=== PATIENT | male | born 1980 | race African-American/Black ===

== ENCOUNTER 2019-10-04 07:03 | Emergency (ER) | payer MEDICAID, OTHER ==
[~2019-10-04] VITALS: Ht 177.8 cm; Wt 117.2 kg
[2019-10-04] MEDS ORDERED: METH4TAB2 PO (07:54)
[2019-10-04] MEDS ORDERED: NEOM10SO7 EACH EAR (07:54)
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
[2019-10-04] MEDS ORDERED: cloNIDine HCL 0.1 MG TABLET PO ONE (08:00)
[2019-10-04 08:40] VITALS: BP 189/125
== END 2019-10-04 08:45 | disposition home or self-care (01) ==
LOC: ER 07:03
DX: H91.93 Unspecified hearing loss, bilateral (principal); H92.03 Otalgia, bilateral; I10 Essential (primary) hypertension; F12.90 Cannabis use, unspecified, uncomplicated; F17.200 Nicotine dependence, unspecified, uncomplicated; Z98.890 Other specified postprocedural states
CPT/HCPCS: 99283